=== PATIENT | female | born 1940 | race African-American/Black ===

== ENCOUNTER 2022-01-11 06:15 | Day surgery (SDC) | payer MEDICARE ==
[~2022-01-11] VITALS: Ht 168 cm; Wt 77.0 kg
[~2022-01-11 06:15] MED LIST: ACETAMINOPHEN500 M1 PO; ALLOPURINOL 10100 MG PO; ANTIVERT25 MG PO; ASPIRIN CHEWABL81 MG PO; LEVEMIR100 UNIT/1 SC; MACROBID100 MG PO; METOPROLOL ER-1 EACH PO; METOPROLOL-HCT1 EACH PO; NOVOLOG FL100 UNIT/1 SC
[2022-01-12 07:33] LABS: BASOPHIL 0.2 % (0-2); EOSINOPHIL 4.4 % (0-7); HCT 27.7 % (37.0-47.0); HGB 8.7 g/dl (12.5-16.0); LYMPHOCYTE 20.3 % (15-48); MCH 29.7 pg (25.0-31.0); MCHC 31.4 g/dL (32.0-36.0); MCV 94.5 fL (78.0-100.0); MONOCYTE 8.1 % (0-12); MPV 11.2 fL (6.0-9.5); NEUTROPHIL 66.6 % (41-80); NRBC 0; PLT 149 K/uL (150-400); RBC 2.93 M/uL (4.20-5.40); WBC 5.2 K/uL (4.0-10.5)
[2022-01-12 07:53] LABS: BUN/CREAT RATIO (CALC) 15.7 RATIO; CREATININE 1.85 mg/dL (0.51-0.95); POTASSIUM 4.1 mmol/L (3.5-5.1)
[2022-01-12] MEDS ORDERED: FEOSOL325 MG PO (09:24)
[2022-01-12] MEDS ORDERED: OXYCODONE-ACET1 EAC1 PO (09:24)
[2022-01-12] MEDS ORDERED: XARELTO10 MG PO (09:24)
== END 2022-01-12 11:51 | disposition home health service (06) ==
LOC: FAS 06:15 → FMS 10:21 → FAS 01-12 11:51
PROVIDERS: Legal Medicine
DX: M17.11 Unilateral primary osteoarthritis, right knee (principal); M21.061 Valgus deformity, not elsewhere classified, right knee; I10 Essential (primary) hypertension; E11.9 Type 2 diabetes mellitus without complications; I25.10 Atherosclerotic heart disease of native coronary artery without angina pectoris; G89.18 Other acute postprocedural pain; Z88.8 Allergy status to other drugs, medicaments and biological substances; Z88.5 Allergy status to narcotic agent; Z79.4 Long term (current) use of insulin
CPT/HCPCS: 36415; 73560; 80048; 85025; 86850; 86900; 86901; 94010; 94762; 97110; 97162; 97166; 97530-GP; C1713; C1776; J0171; J0697; J1815; J2250; J2405; J2704; J2795; J3010; J7120